=== PATIENT | male | born 1960 | race Caucasian/White ===

== ENCOUNTER 2022-12-09 10:14 | Inpatient (IN) | payer OTHER, SELFPAY ==
[2022-12-09] VITALS (50 sets, daily range): BP systolic 39–115; BP diastolic 20–97; PULSE 74–170; RESP 16–27; TEMP 34.7–36.7; O2SAT 96–100; BMI 28.3
--- NOTE | 2022-12-09 | ECHO_ITS ---
Patient Info Name: Vince Sheth Age: 62 years : 1960 Gender: Male Ht: 74 in Wt: 247 lbs BSA: 2.45 m2 HR: 105 bpm BP: 92 / 71 mmHg Heart Rhythm: Atrial Fibrillation Technical Quality: Fair Exam Date: 12/09/2022 4:17 PM Exam Location: [facility] Pulmonary Patient Status: Inpatient Admit Date: 12/09/2022 Staff Ordering Physician: Hannah Mcelroy APRN Base Ply Hand: Joseline Vann RDCS Attending Provider: Casimiro Garcia MD Referring Physician: Navi SHELTON; Exam Type: CA echo doppler color flow Study Info Indications - ELEVATED bnp, sob Complete two-dimensional, color flow and Doppler transthoracic echocardiogram is performed. Summary 1. Complete two-dimensional, color flow and Doppler transthoracic echocardiogram is performed. 2. Occur enlargement with normal wall thickness. Abnormal septal motion possibly due to bundle branch block. Severe global hypokinesis, EF 20%. Grade 2 diastolic dysfunction is present. 3. Severe right ventricular enlargement with severe hypokinesis. 4. Severe biatrial enlargement. 5. Mild mitral regurgitation. 6. Mild tricuspid regurgitation. 7. No pulmonary hypertension, estimated pulmonary arterial systolic pressure is 33 mmHg. 8. Dilated inferior vena cava. 9. Pleural effusion. 10. Atrial fibrillation. Left Ventricle Left ventricular chamber dimension is severely enlarged. Left ventricular systolic function is normal, estimated at 15-20%. There is no increased left ventricular wall thickness. Left ventricular septal wall motion is abnormal with septal motion related to bundle branch block. The left ventricular diastolic function is grade II diastolic dysfunction. Right Ventricle Right ventricular chamber dimension is severely enlarged. Right ventricular systolic function is reduced. Left Atria Left atrial chamber dimension is severely enlarged. Right Atria Right atrial chamber dimension is severely enlarged. Aortic Valve The aortic valve is trileaflet. There is no aortic valve sclerosis. There is no aortic valve stenosis. There is trace aortic valve regurgitation. Pulmonic Valve The pulmonic valve is normal. There is no pulmonic valve stenosis. There is trace pulmonic regurgitation. Mitral Valve The mitral valve has normal leaflets. There is no mitral valve stenosis. There is mild mitral valve regurgitation. Tricuspid Valve The tricuspid valve leaflets are normal. There is no significant tricuspid valve stenosis. There is mild tricuspid valve regurgitation. No pulmonary hypertension, estimated pulmonary arterial systolic pressure is 33 mmHg. There is no tricuspid valve calcification. Pericardium/Pleural The pericardium appears normal. There is no pericardial effusion. Inferior Vena Cava Dilated inferior vena cava with <50% collapse upon inspiration consistent with Empty right atrial pressure, 20 mmHg. Aorta The aortic root size at the sinus of Valsalva is normal. The prox ascending aorta size is normal. Left Ventricular Outflow Tract Name Value Normal LVOT 2D LVOT Diameter 1.9 cm LVOT Doppler LVOT Peak Gradient 0 mmHg LVOT Mean Gradient 0 mmHg LVOT VTI
--- NOTE | ~2022-12-09 | XR_ITS ---
EXAMINATION: XR chest ET placement DATE: 12/09/2022 22:18 INDICATION: Intubated. TECHNIQUE: A single frontal view of the chest was obtained. COMPARISON: Chest single view 12/09/2022, CT abdomen and pelvis 12/09/2022 FINDINGS: There are moderate-sized right and small left pleural effusions. There is mild atelectasis at the lung bases. No pneumothorax. Cardiomegaly is noted. The endotracheal tube tip is 4.5 cm above the [place]. The nasogastric tube tip is in the stomach. A right upper extremity peripherally inserted central venous catheter (PICC) is seen with tip at the superior cavoatrial junction. IMPRESSION: 1. Moderate-sized right and small left pleural effusions. 2. Cardiomegaly. Reviewed, dictated and finalized at location E.
--- NOTE | ~2022-12-09 | CT_ITS ---
EXAMINATION: CT abdomen pelvis wo con DATE: 12/09/2022 14:44 INDICATION: Nausea and vomiting. Diarrhea. Abdominal distention. TECHNIQUE: Computed tomography (CT) of the abdomen and pelvis was performed without intravenous contr ast. Automated exposure control and iterative reconstruction technique were employed. The dose-length product was 1403.40 mGy-cm. COMPARISON: None. FINDINGS: There are moderate-sized right and small left pleural effusions. There is peripheral atelec tasis bilaterally. Cardiomegaly is noted. No pericardial effusion. There are cysts in the liver measu ring up to 4.6 cm. There is a gallstone in the gallbladder, which is normal in size. The spleen, panc reas, adrenal glands, and kidneys are normal. There is no urolithiasis. There is calcified atheroscle rosis of the aorta and many of the other arteries. There is a fusiform infrarenal aortic aneurysm leonel suring 3.4 cm. There are no dilated loops of bowel. The appendix is normal. There are no pathological ly enlarged lymph nodes. There are bilateral inguinal hernias containing fat. There is a large volume of ascites. Body wall edema is noted. There is mild lumbar spondylosis. IMPRESSION: 1. Moderate-sized right and small left pleural effusions. 2. Large volume of ascites. 3. 3.4 cm fusiform aneurysm of infrarenal aorta. Reviewed, dictated and finalized at location E.
--- NOTE | ~2022-12-09 | NM_ITS ---
EXAMINATION: NM lung vent and perfusion DATE: 12/09/2022 14:44 INDICATION: Lung disease on chest radiograph, lower limb swelling and elevated d-dimer TECHNIQUE: 5.5 mCi xenon-133 by inhalation and 22.573 mCi Tc-99m MAA by intravenous route. Scintigra phic images of the chest were obtained. COMPARISON: Chest radiograph and CT abdomen and pelvis dated 12/09/2021 FINDINGS: There is an enlarged cardiac silhouette on both the ventilation and perfusion images. There is diffus e decreased activity in the right hemithorax on the posterior scintigrams obtained with both ventilat ion and perfusion imaging and with large nonsegmental region of absent activity along the posterior a spect of the right lung with flat anterior margin on the right lateral perfusion scintigrams likely r elated to a corresponding small to moderate-sized posterior layering left pleural effusion as seen on the prior radiographs and CT. Small triangular perfusion defect at the anterior right lower lung on the GARCIA and right lateral projections corresponding to extension of the paracardial fat pad into medi al aspect of the major fissure between the right middle and lower lobes. Small perfusion defect at th e left posterior sulcus also corresponding to a small left pleural effusion. There is otherwise homog eneous radiotracer activity throughout the lungs on the single breath ventilation sequence. No discre te ventilation and perfusion mismatch is identified. IMPRESSION: 1. Low probability for pulmonary embolism. Reviewed, dictated and finalized at location A.
--- NOTE | ~2022-12-09 | US_ITS ---
EXAMINATION: US abdomen limited DATE: 12/09/2022 20:47 INDICATION: Ascites. TECHNIQUE: Multiple grayscale and Doppler ultrasound images of the abdomen were obtained. COMPARISON: CT abdomen and pelvis 12/09/2022 FINDINGS: A survey of the 4 quadrants of the abdomen demonstrates a large volume of ascites. IMPRESSION: 1. Large volume of ascites. Reviewed, dictated and finalized at location E. IMPRESSION: 1. Large volume of ascites.
--- NOTE | ~2022-12-09 | XR_ITS ---
XR chest 1V portable DATE: 12/09/2022 11:31 INDICATION: Bilateral leg and hand swelling. Fatigue. TECHNIQUE: Portable AP chest on 01/05/2023 at 1124 hours COMPARISON: None FINDINGS: There is cardiomegaly. There is blunting of both costophrenic angle suggesting mild bilateral pleural effusions. Mild promin ence of the minor fissure may be due to mild subpleural edema. Mild pulmonary vascular congestion/red istribution. Bilateral lower lung infiltrate and/or atelectasis is suggested. Diffuse osteopenia. IMPRESSION: Cardiomegaly and mild congestive changes Bilateral patchy lower lung infiltrate and/atelectasis Reviewed, dictated and finalized at location L.
--- NOTE | ~2022-12-09 | XR_ITS ---
EXAMINATION: XR chest PICC line DATE: 12/09/2022 13:56 INDICATION: PICC line placement TECHNIQUE: frontal view of the chest was obtained. COMPARISON: Chest radiograph dated 12/09/2022 FINDINGS: Right upper extremity peripherally inserted central venous catheter (PICC) tip in the right atrium ap proximately 4 cm below level of the superior cavoatrial junction. Persistent hazy airspace opacities in the right mid to lower lung zone and left lower lung zone with blunting at the costophrenic angles consistent with small bilateral posterior layering pleural effusions and associated basilar atelecta sis. Mild increased interstitial pattern in the perihilar regions and lower lung zones consistent wit h mild pulmonary edema. No pneumothorax. Cardiomegaly. IMPRESSION: 1. Right PICC line tip in the right atrium 4 cm below the level of the superior cavoatrial junction. 2. Likely congestive heart failure with cardiomegaly, mild pulmonary edema and small bilateral pleura l effusions. 3. Opacities at the bilateral lung bases most likely associated atelectasis although differential inc ludes less likely pneumonia. Reviewed, dictated and finalized at location A. IMPRESSION: 1. Right PICC line tip in the right atrium 4 cm below the level of the superior cavoatrial junction. 2. Likely congestive heart failure with cardiomegaly, mild pulmonary edema and small bilateral pleural effusions. 3. Opacities at the bilateral lung bases most likely associated atelectasis alt wally differential includes less likely pneumonia.
--- NOTE | 2022-12-09 10:31 | ECG_ITS ---
Measurements Intervals [place] Rate: 162 P: TN: 0 QRS: 86 QRSD: 98 T: 240 QT: 266 QTc: 437 Interpretive Statements ATRIAL FIBRILLATION WITH RAPID VENTRICULAR RESPONSE INCOMPLETE RIGHT BUNDLE BRANCH BLOCK [90+ ms QRS DURATION, TERMINAL R IN V1/V2, 40+ ms S IN I/aVL/V4/V5/V6] ST DEVIATION AND MODERATE T-WAVE ABNORMALITY, CONSIDER LATERAL ISCHEMIA [-0.1+ mV T- WAVE IN I/aVL/V5/V6] NO PREVIOUS ECG AVAILABLE FOR COMPARISON Electronically Signed On 12-09-2022 12:41:47 CDT by Yonatan Charles M.D.
[2022-12-09 10:48] LABS: Basophils Percent Auto 0.2 % (0.2-1.2); Hematocrit 53.6 % (42.0-52.0); Hemoglobin 16.7 g/dL (14.0-18.0); Immature Granulocyte Absolute 0.03 K/mm3 (0.00-0.031); Immature Granulocyte Percent A 0.3 % (0-0.5); Lymphocytes Absolute Auto 0.56 K/mm3 (0.9-3.2); Lymphocytes Percent Auto 6.1 % (18.3-44.2); Mean Corpuscular HGB Conc 31.2 g/dl (32-36); Mean Corpuscular Hemoglobin 26.6 pg (26-34); Mean Corpuscular Volume 85.4 fl (80-100); Mean Platelet Volume 12.7 fl (7.4-10.4); Monocytes Percent Auto 11.1 % (2.6-8.5); Neutrophils Absolute Auto 7.5 K/mm3 (1.3-6.7); Neutrophils Percent Auto 82.3 % (45.5-73.1); Platelet Count Result 146 k/mm3 (150-375); Red Blood Count 6.28 M/mm3 (4.6-6.20); Red Cell Distribution Width 17.2 % (11.5-14.5); White Blood Count 9.1 K/mm3 (4.5-10.0)
[2022-12-09 10:57] LABS: Alanine Aminotransferase 37 U/L (6-50); Alkaline Phosphatase 71 U/L (38-126); Anion Gap 8 mmol/L (8-16); Aspartate Amino Transferase 49 U/L (17-59); Bilirubin,Total 2.2 mg/dL (0.2-1.3); Blood Urea Nitrogen 32 mg/dL (9-20); Calcium 9.2 mg/dL (8.4-10.2); Carbon Dioxide 32 mmol/L (22-30); Chloride 88 mmol/L (98-107); Estimated CRCL calculation 82 ml/min; Estimated Glomerular Filt Rate > 60; Glucose 150 mg/dL (65-110); Potassium 5.6 mmol/L (3.4-5.0); Sodium 128 mmol/L (137-145)
[2022-12-09 11:00] LABS: INR 1.5
[2022-12-09 11:01] LABS: Partial Thromboplastin Time 31.4 SECONDS (22.3-36.8)
[2022-12-09] MEDS: METOPROLOL TARTRATE INJ 5 MG/5 ML VIAL IV PUSH ×2 (11:02→11:07)
[2022-12-09 11:10] LABS: NT Pro B Type Natriuretic Pept 16300 pg/mL (19.9-100); Troponin I 0.033 ng/mL (0.000-0.034)
[2022-12-09] MEDS: FUROSEMIDE INJ 40 MG/4 ML VIAL IV PUSH (11:14)
[2022-12-09] MEDS: AMIODARONE 150 MG/D5W 100 ML 150 MG/100 ML BAG 600 MG IV CONT (11:24)
[2022-12-09 11:35] LABS: D Dimer 2.99 ug/mL (<0.48)
[2022-12-09] MEDS: AMIODARONE 360 MG/D5W 200 ML 360 MG/200 ML BAG 33.33 MG IV CONT ×2 (11:39→18:01)
[2022-12-09] MEDS: NOREPINEPHRINE 8 MG/D5W 250 ML 8 MG/250 ML BAG 9.38 MG IV CONT (12:15)
--- NOTE | 2022-12-09 12:27 | PC.NURSE ---
1200: Dr. Matos called to pt to assess hypotension. Pt beginning to get lethargic. Does converse when spoken to. Orders received additional IV started.
--- NOTE | 2022-12-09 12:29 | PC.NURSE ---
Pt B/P increased with a mean 70. Speaking with ICU PAN GREASER at this time. Continues to deny chest pain. Edema unchanged. Pt states his scrotum is swollen as well.
--- NOTE | 2022-12-09 12:47 | PM.IMHP ---
H&P: HPI History of Present Illness Date/Time: 12/09/22 12:47 Chief Complaint: N/V, Swelling Narrative: [age] year presents here with nausea, vomiting, diarrhea swelling and shortness of breath with PMH of tobacco use (cessation on 10/10/22). Patient presents here with intermittent diarrhea for the past 3 weeks. Describes bowel movements as clear, frothy. Also endorsing nausea and vomiting - bilious. States he has been more short of breath and experiencing an increased amount of swelling to his legs, scrotum, abdomen, and left upper extremity. Patient reports that he came today because of an advertisement for a linux system administrator's office. He originally called the urgent care in [place] and they recommended he seek treatment in the emergency department. Otherwise states he has not seen a medical provider for some time, no past medical history that he can report beyond former tobacco use. Patient is poor historian and has difficulty describing symptoms and onset. Review of Systems Review of Systems: He denies fever, chest pain, cough, or palpitations. Endorses occasional alcohol use, no prior history of heavy abuse. All systems reviewed & are unremarkable except as noted in HPI and below PMFSH Past Medical History Medical History Acute combined systolic and diastolic congestive heart failure Cardiomyopathy Former tobacco use Lung infection Hospitalized for 3 or 4 months when he was [age] years old with some type of infection as result of bird droppings (pscitacosis?), sounds like he may have required thoracentesis. Family History Family History Mother Sepsis Cause of Father Carcinoma of colon COPD (chronic obstructive pulmonary disease) Sibling Vasovagal syncope Social History Social History Social History: , lives w/ younger brother, has 2 children. Used to work building swimming pools. Stopped smoking in October 2022. Smoking packs per day: 0.5 Smoking cigarettes per day: 10.0 Smoking status: Former smoker Alcohol intake: current Alcohol use details: Infrequent alcohol Substance use: never Lack of Transportation: No Lack of Food: Sometimes True Current Housing: Decline to Answer Concerned About Future Housing: Decline to Answer Difficulty Paying Gas/Electric Bills: Decline to Answer Difficulty Paying for Meds: Decline to Answer Currently Unemployed: Decline to Answer Education: Decline to Answer Difficulty w/ Childcare or Family Care: Decline to Answer Spiritual care concerns: No Meds Home Medications and Allergies Home Medications Medication Instructions Recorded Confirmed Type No Home Medications 12/09/22 12/09/22 History Allergies Allergy/AdvReac Type Severity Reaction Status Date / Time iodine Allergy Unknown Verified 12/09/22 11:03 strawberry Allergy Unknown Verified 12/09/22 11:03 Vital Signs Vital Signs - 24 hr 12/09/22 10:24 12/09/22 11:02 12/09/22 11:04 Temperature 97.5 F L Pulse Rate 74 170 H 170 H Respiratory Rate 18 Blood Pressure 114/97 H Pulse Oximetry 97 Oxygen Delivery Room Air 12/09/22 11:07 12/09/22 11:10 12/09/22 11:24 Temperature Pulse Rate 148 H 152 H 134 H Respiratory Rate Blood Pressure 102/85 Pulse Oximetry Oxygen Delivery 12/09/22 11:39 12/09/22 12:12 12/09/22 12:15 Temperature Pulse Rate 110 H 112 H 108 H Respiratory Rate 20 Blood Pressure 111/91 H 93/70 L 56/29 L Pulse Oximetry 97 Oxygen Delivery Exam Narrative: Patient lying in stretcher. Const: General: comfortable and no acute distress Eyes: General: appearance normal, both eyes and all related structures Sclera: sclerae normal Pupils: Equal, round and reactive pupils present Resp: Effort & Inspec
--- NOTE | 2022-12-09 13:20 | WPDCNINT ---
Assessment and Plan Assessment and plan (1) Atrial fibrillation with rapid ventricular response: Code(s): I48.91 - Unspecified atrial fibrillation Status: Acute Assessment and Plan: Patient started on amiodarone drip. He has a mention of iodine allergy but states that he was a minor rash although he does not even remember any other details regarding it Will start anticoagulation. Patient will need paracentesis hence will delay starting anticoagulation if it is scheduled for today (2) Acute CHF (congestive heart failure): Code(s): I50.9 - Heart failure, unspecified Status: Acute Assessment and Plan: Patient has anasarca with abdominal distension suggestive of ascites, diffuse bilateral pitting edema, and pulmonary edema Check echocardiogram and TSH Denies any chest pain. EKG reviewed. Troponin x1 is negative (3) Shock: Code(s): R57.9 - Shock, unspecified Status: Acute Assessment and Plan: Patient hypotensive but overall significantly volume overloaded Patient is going to be started on Levophed. If RVR gets worse may have to switch him to [place]-Synephrine No signs or symptoms suggestive of sepsis at this time. WBC normal. check UA lactic acid and procalcitonin level (4) Hyponatremia: Code(s): E87.1 - Hypo-osmolality and hyponatremia Status: Acute Assessment and Plan: Sodium 128. Baseline unknown likely chronic from CHF Monitor (5) Anasarca: Code(s): R60.1 - Generalized edema Status: Acute Assessment and Plan: Patient has diffuse anasarca and this is likely secondary to congestive heart failure although liver disease will need to be ruled out. CT scan of the abdomen and pelvis is pending. INR 1.5. Bilirubin is slightly elevated 2.2 but liver enzymes are normal. Albumin is normal. Check ammonia. Depending on CT scan results will decide on ultrasound. He denies any IV drug use Will request paracentesis for the ascites as patient has significant distension and is symptomatic. Check lower extremity Dopplers to rule out any DVT although diffuse chronic bilateral swelling suggesting against DVT to be the etiology Once patient's blood pressure improves will start him on Lasix Check UA with micro Accurate I&Os (6) Hyperkalemia: Code(s): E87.5 - Hyperkalemia Status: Acute Assessment and Plan: Potassium 5.6. Creatinine is 1.1 Will give insulin D50 and dose of Lokelma Recheck BMP later today Plan DVT prophylaxis -will start anticoagulation AFib with RVR Nutrition - NPO Code Status - Full Code Total Critical Care Time - 40 minutes Due to a high probability of clinically significant, life threatening deterioration, the patient required my highest level of preparedness to intervene emergently and I personally spent this critical care time directly and personally managing the patient. This critical care time included obtaining a history; examining the patient; pulse oximetry; ordering and review of studies; arranging urgent treatment with development of a management plan; evaluation of patient's response to treatment; frequent reassessment; and discussions with other providers. It was exclusive of separately billable procedures and treating other patients and teaching time. Please see Assessment and Plan section and the rest of the note for further information on patient assessment and treatment Engineer Technical Staff Consult Note Consult date: 12/09/22 Reason for consult: AFib with RVR. Hypotension HPI: Vince Sheth is a 62 year old male with no significant past medical history who has not seen a physician in decades presented with chief complaint of swelling all over his body. Patient states that he has not seen any physician in many years since he does not get sick. He states that on last 1 and half months he has been developing generalized swelling of his legs and abdomen. States the swelling has gotten so worse that he is unabl
--- NOTE | 2022-12-09 13:21 | PC.NURSE ---
1320: Belem Snider RN here to place PICC line. Procedure explained to pt, pt denies any questions or concerns consent signed. Dr. Francois assessed pt no new orders. Pt remains A/O x4. B/P improving on Levophed gtt
[2022-12-09] MEDS: LIDOCAINE HCL 1% PF INJ 5 ML VIAL INFILTRATE (13:30)
--- NOTE | 2022-12-09 13:45 | PC.NURSE ---
1245: Dr. Matos increased Levophed to 8mcg/min
--- NOTE | 2022-12-09 13:46 | PC.NURSE ---
Last note 1245 incorrect Levophed increased to 8mg/min by Dr. Matos
--- NOTE | 2022-12-09 13:48 | PC.NURSE ---
Levophed at 8mcg/min by Dr. Matos
--- NOTE | 2022-12-09 13:53 | ED.GENADULT ---
HPI - General Adult General Chief complaint: Unspecified Stated complaint: leg swelling Time Seen by Provider: 12/09/22 10:58 History of Present Illness HPI narrative: Patient states that about a month ago he started feeling poorly, he was walking up a hill and felt like he could not breathe, and since then he has not felt entirely well, he also noticed that he has been having a lot of swelling to his legs and his abdomen and finally came in today. Has no chest pain, he does have difficulty breathing with exertion. Related Data Allergies Allergy/AdvReac Type Severity Reaction Status Date / Time iodine Allergy Unknown Verified 12/09/22 11:03 strawberry Allergy Unknown Verified 12/09/22 11:03 Review of Systems Review of Systems: CONST: No fever. HEENT: No sore throat C/V: No chest pain RESP: Shortness of breath on exertion GI: Reports abdominal distension : No dysuria. M/S: Bilateral lower extremity edema up to waist SKIN: No rash. NEURO: [No headache or focal numbness or weakness] PSYCH: [No depression] Exam Narrative: EXAMINATION OF ORGAN SYSTEMS/BODY AREAS: Constitutional: Vital signs per nursing GENERAL:[No acute distress, non-toxic appearing.] HEAD: Normal with no signs of head trauma. EYES: EOMI, conjunctiva normal ENT: Hearing grossly intact LUNGS: Slightly labored respirations HEART: [Regular rate and rhythm] ABD: [Soft], pitting edema abdomen EXT: Normal range of motion, pitting edema up entire leg SKIN: [No rashes or lesions.] NEURO: [Alert and oriented x 3. No gross focal sensory or strength deficits.] PSYCH: Normal affect Course Vital Signs Vital signs: Vital Signs Temperature 97.5 F L 12/09/22 10:24 Pulse Rate 74 12/09/22 10:24 Respiratory Rate 18 12/09/22 10:24 Blood Pressure 114/97 H 12/09/22 10:24 Pulse Oximetry 97 12/09/22 10:24 Oxygen Delivery Room Air 12/09/22 10:24 Temperature 97.8 F 12/09/22 12:45 Pulse Rate 123 H 12/09/22 13:30 Respiratory Rate 20 12/09/22 13:30 Blood Pressure 90/75 L 12/09/22 13:30 Pulse Oximetry 97 12/09/22 13:30 Oxygen Delivery Nasal Cannula 12/09/22 11:30 Oxygen Flow Rate 2 12/09/22 11:30 Medical Decision Making MDM Narrative Medical decision making narrative: Patient presenting with weakness, abdominal distention, dyspnea on exertion, and bilateral lower extremity pitting edema worsening over the last month, at time of triage his heart rate was 160s, EKG showing A-fib with RVR, he is immediately placed in room, IV access obtained, monitors placed, given my concern that he likely has uncompensated new onset heart failure, I did opt to give metoprolol and Lasix instead of Cardizem, and initially heart rate did improve however blood pressure did start dropping to maps around 65, I therefore did not give additional metoprolol, and did start an amiodarone drip, I did speak with the certified driver examiner on-call who agreed with the plan. I did reevaluate patient and unfortunately his blood pressure has continued to drop necessitating starting peripheral pressors, I did speak with the director credit risk. I did update the patient on the plan. Labs notable for BNP 16,000, low sodium and high potassium, elevated D-dimer. Patient will be getting a VQ scan and CT abdomen/pelvis Vital Signs Vital Signs: Vital Signs Temperature 97.5 F L 12/09/22 10:24 Pulse Rate 74 12/09/22 10:24 Respiratory Rate 18 12/09/22 10:24 Blood Pressure 114/97 H 12/09/22 10:24 Pulse Oximetry 97 12/09/22 10:24 Oxygen Delivery Room Air 12/09/22 10:24 Temperature 97.8 F 12/09/22 12:45 Pulse Rate 123 H 12/09/22 13:30 Respiratory Rate 20 12/09/22 13:30 Blood Pressure 90/75 L 12/09/22 13:30 Pulse Oximetry 97 12/09/22 13:30 Oxygen Delivery Nasal Cannula 12/09/22 11:30 Oxygen Flow Rate 2 12/09/22 11:30 Lab Data 12/09/22 10:42 12/09/22 10:42 Labs: Lab Results 12/09/22 Range/Units
[2022-12-09] MEDS: INSULIN HUMAN REGULAR (*BKC) 100 UNITS/ML IV PUSH (14:48)
[2022-12-09] MEDS: SODIUM ZIRCONIUM CYCLOSILICATE 10 GM POWD.PACK PO ×2 (14:49→20:03)
[2022-12-09] MEDS: DEXTROSE 50% 25 GM/50 ML SYRINGE IV PUSH (14:50)
--- NOTE | 2022-12-09 14:52 | PC.NURSE ---
RN accompanied pt to Nuc Med & CT with monitor & meds infusing. Pt tolerated well.
--- NOTE | 2022-12-09 15:06 | ADMGEN ---
This patient, Vince Sheth, was admitted to Intensive Care Unit-8. Patient/family oriented to hospital policies and general routines including ID bracelet, bed and alarms, visiting hours, pain management, procedures, bathroom and other care routines, personal items, smoking policy, room service/diet, and visiting hours. Information on how to activate the Rapid Response Team has been discussed. Patient/Family are encouraged to report perceived risks to care and to ask questions if they do not understand what they are told or what they should do.
[2022-12-09 15:53] LABS: Ammonia 35 umol/L (9-30)
[2022-12-09 15:54] LABS: Lactic Acid Reflex 3.7 mmol/L (0.7-2.0)
[2022-12-09 15:56] LABS: Anion Gap 10 mmol/L (8-16); Blood Urea Nitrogen 32 mg/dL (9-20); Calcium 8.9 mg/dL (8.4-10.2); Carbon Dioxide 27 mmol/L (22-30); Chloride 90 mmol/L (98-107); Estimated CRCL calculation 57 ml/min; Estimated Glomerular Filt Rate 51; Glucose 171 mg/dL (65-110); Potassium 5.2 mmol/L (3.4-5.0); Sodium 127 mmol/L (137-145)
[2022-12-09 16:01] LABS: Hemoglobin A1C 6.5 % (<5.7)
[2022-12-09 16:06] LABS: Appearance Urine Cloudy (Clear); Bacteria Urine None Seen /hpf; Bilirubin Urine 2+ (Negative); Blood Urine 2+ (Negative); Color Urine Dark Yellow (Yellow); Glucose Urine UA Negative (Negative); Hyaline Casts Urine Present /lpf; Ketones Urine Negative (Negative); Leukocyte Esterase Ur 1+ LEU/UL (Negative); Need Manual Microscopic Reviewed; Nitrate Urine Positive (Negative); Non Pathogenic Casts >20; Protein Urine 3+ mg/dL (Negative); RBC Urine 21-50 /hpf (0-2); Specific Grav Ur 1.027 (1.001-1.035); Squamous Epithelial Cell Urine None seen /hpf (Few); WBC Urine 21-50 /hpf
[2022-12-09 16:07] LABS: Add Urine Microscopic? YES
--- NOTE | 2022-12-09 16:39 | PM.CNCAR ---
Assessment and Plan Assessment and plan (1) Atrial fibrillation with rapid ventricular response: Code(s): I48.91 - Unspecified atrial fibrillation Status: Acute Assessment and Plan: Atrial fibrillation w/ rapid ventricular response of uncertain duration. Has been difficult to control despite IV amiodarone. Low BP limits therapy. Unclear if caused by cardiomyopathy or is causing the cardiomyopathy. No valve dz, significant thyroid dz, etc. --Cont amio at 1 mg/min --Digoxin 0.25 mcg IVp q 6 Hr X 3 doses --Recommend anticoagulation, though since pt may get a paracentesis tmr, AC is on hold --Lovenox X 1 dose (2) Acute combined systolic and diastolic congestive heart failure: Code(s): I50.41 - Acute combined systolic (congestive) and diastolic (congestive) heart failure Status: Acute Assessment and Plan: Acute R&L sided CHF w/ anasarca. Not responding to IV Lasix and is developing CHIQUI. Pt is quite ill, though oxygenating adequately at this time. --Getting a dose of furosemide 80 mg X 1 --Try Dobutamine 2.5 mcg/kg/min and see if BP and HR tolerate this (3) Cardiomyopathy: Code(s): I42.9 - Cardiomyopathy, unspecified Status: Acute Assessment and Plan: EF20%, involving both the right and left ventricles. Etiology unclear, may be idiopathic vs. 2nd a fib RVR, or both. --Unable to institute guideline-directed medical therapy due to low BP. (4) Shock: Code(s): R57.9 - Shock, unspecified Status: Acute Assessment and Plan: Requiring Levophed. Unclear what type of shock, may be cardiogenic, r/o sepsis. Cultures obtained, on empiric antibiotics. --If pt deteriorates and this appears to be cardiogenic shock, may need to consider advanced therapies. (5) CHIQUI (acute kidney injury): Code(s): N17.9 - Acute kidney failure, unspecified Status: Acute Assessment and Plan: CHIQUI and hyponatremia; tx per hospitalists/intensivists --Daily BMP (6) Anasarca: Code(s): R60.1 - Generalized edema Status: Acute Assessment and Plan: Probably due to CHF and possibly cardiac cirrhosis. Plan Pt is critically ill with life-threatening problems, and has a high risk of significant morbidity and mortality. History of Present Illness History of Present Illness Consult date/time: 12/09/22 16:39 Reason For Visit: Afib RVR Hypotension CHF Narrative: Vince Sheth is a 62 y.o. male whom I was asked to see by Dr. Roro Matos for my advice and opinion regarding his new AFib and CHF, in consultation. He has not seen a doctor for many years and thus has no past medical history. Mr. Sheth has had problems with RICCI, swelling of his legs and abdomen, RICCI and not feeling well for about a month. In the emergency room his found to have AFib RVR with a heart rate of 123, a soft blood pressure, and severe lower extremity swelling, ascites and anasarca as well as pulmonary edema. He was given some IV metoprolol without much improvement, then started on IV amiodarone. He has been admitted to the intensive care unit because of low blood pressure. He has been started on Levophed. No palps, CP, h/o heart dz or murmurs, thyroid dz. Some dizziness, no syncope. ProBNP: [id number] TSH: 4.9 EKG: AFib rate 162, low voltage, lateral T-wave inversion, poor R-wave progression, personally reviewed Chest x-ray: Cardiomegaly, bilateral pleural effusions, mild pulmonary vascular reviewed distribution/congestion, lower lobe infiltrates, personally reviewed Echo: Four-chamber cardiac enlargement, severe global hypokinesis, ejection fraction 20%. Review of Systems Constitutional: Constitutional: Denies fever(s) Eyes: Eyes: Reports no additional eye complaints ENT: Denies epistaxis Cardiovascular: Cardiovascular: Denies chest pain, Reports pedal edema, Reports leg edema, Denies lightheadedness and Denies dyspnea Comments: Some PND and orthopnea
[2022-12-09 17:16] LABS: Free T4 Free Thyroxine Reflex 1.37 ng/dL (0.78-2.19)
[2022-12-09 18:00] LABS: Total Triiodothyronine (T3) 0.88 NG/ML (0.97-1.69)
[2022-12-09] MEDS: DOBUTamine 250 MG/D5W 250 ML 250 MG/250 ML BAG 14.99 MG IV CONT (18:39)
[2022-12-09 18:42] LABS: Reflex Lactic Acid Yes or No Add Lactic
[2022-12-09] MEDS: ASPIRIN 325 MG TABLET PO (20:02)
[2022-12-09] MEDS: ENOXAPARIN 40 MG/0.4 ML SYRINGE SUB-Q (20:09)
[2022-12-09] MEDS: VASOPRESSIN INJ 100 UNITS in DEXTROSE 5% 95 ML IV CONT (20:30)
[2022-12-09 21:15] LABS: INR 2.1; Partial Thromboplastin Time 40.8 SECONDS (22.3-36.8); Prothrombin Time 24.7 Seconds (11.1-14.7)
[2022-12-09] MEDS: LIDOCAINE HCL 2% GEL UROJET 10 ML PKG MUCOUS MEM (21:22)
[2022-12-09 21:41] LABS: Alveolar/Arterial O2 Gradient 137.9 mmHg; Base Excess ABG -7.4 mEq/l (+/-2.0); Fractional Inspired Oxygen 38 %; HCO3 ABG 26.8 mEq/l (22.0-26.0); Oxygen Content ABG 4.3 %vol (16.0-22.0); PO2 FiO2 Ratio Arterial Blood 0.45 %; Total Hemoglobin 17.8 g/dL (12.0-18.0)
[2022-12-09 21:47] LABS: Fractional Inspired Oxygen 38 %; HCO3 VBG 24.6 mEq/l (24.0-30.0)
[2022-12-09 21:49] LABS: Device NASAL CANNULA; Liters per Minute 4.5 LPM; PCO2 VBG 82.6 mmHg (42.0-48.0); PO2 VBG < 27.0 mmHg (35.0-45.0); pH VBG 7.092 (7.300-7.400)
[2022-12-09 21:50] LABS: Oxygen Saturation ABG < 0.0 % (95.0-100.0); Oxyhemoglobin 17.1 % THb (90.0-100.0); PCO2 ABG 100.5 mmHg (35.0-45.0); PO2 ABG < 27.0 mmHg (80.0-100.0); pH ABG 7.044 (7.350-7.450)
[2022-12-09 21:51] LABS: Device NASAL CANNULA; Liters per Minute 4.5 LPM; Site Drawn LEFT FEMORAL
[2022-12-09 21:56] LABS: Fibrinogen 202 mg/dl (215-510)
[2022-12-09 22:09] LABS: Albumin Level 3.7 g/dL (3.5-5.1); Anion Gap 14 mmol/L (8-16); Blood Urea Nitrogen 32 mg/dL (9-20); Calcium 8.7 mg/dL (8.4-10.2); Carbon Dioxide 25 mmol/L (22-30); Chloride 88 mmol/L (98-107); Estimated CRCL calculation 47 ml/min; Estimated Glomerular Filt Rate 41; Glucose 116 mg/dL (65-110); Phosphorus 8.2 mg/dL (2.5-4.5); Potassium 5.9 mmol/L (3.4-5.0); Sodium 127 mmol/L (137-145)
[2022-12-09 22:12] LABS: Lactic Acid Reflex 6.1 mmol/L (0.7-2.0)
[2022-12-09] MEDS: FENTANYL 2,500MCG/NS250ML(*CRX 2,500 MCG/250 ML BAG IV CONT (22:30)
[2022-12-09] MEDS: MIDAZOLAM 100MG/NS 100ML(*CRX) 100 MG/100 ML BAG IV CONT (22:30)
--- NOTE | 2022-12-09 22:34 | PC.NURSE ---
2117- home patient prep for arterial line placement by Dr Brock
[2022-12-09] MEDS: SODIUM CHLORIDE 0.9% IV 250 ML 30 ML IV CONT (23:00)
--- NOTE | 2022-12-09 23:36 | WPDPROCEDUR ---
Procedures Central Line Placement Left Femoral: Central Line Date: 12/09/22 Central Line Time: 22:30 Performed Emergently - Given emergent patient condition, temporal constraints may have precluded informed consent.: Yes Time Out Performed: Yes Patient Position: trendelenburg Patient placed on monitor/pulse ox: Yes Provider Prep: mask, sterile gown, sterile gloves, Max. sterile barrier precautions, cap and hand hygiene with conventional soap/water or alcohol based hand rub Central line prep: 2% Chlorhexidine scrub and sterile full body sheet applied Sterile US Technique with sterile gel/sterile probe covers: Yes Central line lumen inserted: triple Chinese: 7 Length (cm): 16 Depth of Insertion (cm): 15 Post Procedure: sutured in place, good blood return, all ports aspirated, flushed, capped and transparent dressing Patient tolerated procedure: other Complications: hematoma at puncture site Additional comments: Difficult access due to patient condition, body habitus, anasarca. Attempt made to facilitate a clear field and overcome barriers by positioning and staff at standby to help position. Aseptic technique maintained during initial half of procedure. First attempt guidewire kinked. Second attempt with arterial line guidewire. Guidewire able to be passed. Dilator used. Central line guidewire replaced the arterial line guidewire. Central line then passed through without difficulty. All lines draw and flush easily. Line sutured down x2. Due to patient condition and difficulties, aseptic technique abandoned. Hematoma at insertion site. Dr. Bryson at bedside supervising and providing assistance. Intubation Intubation Date: 12/09/22 Intubation Time: 22:00 A pre-procedural Time-Out was completed immediately before starting the procedure and confirmed: Patient Identification, Site, Procedure, Patient Position and the Availability of Requisite Equipment: Yes Sedative: etomidate Mg given: 20 Paralytic: succinylcholine Mg given: 100 Laryngoscope: fiber optic video scope ET tube size: cuffed Tube secured depth (cm): 27 Tube secured location: lips Tube placement confirmation: visualized tube passing through cords, equal breath sounds bilaterally, no breath sounds over epigastrium and confirmation by capnometry Patient tolerated procedure: well Intubation complications: none Additional comments: post CXR ordered and reviewed. ET tube termination 4 cm above [place]. Impression pending. Dr. Bryson at bedside to to assess and supervise procedure.
[2022-12-10] VITALS (13 sets, daily range): BP systolic 39–77; BP diastolic 20–50; PULSE 101–112; RESP 20–24; TEMP 35.5–36.8; O2SAT 33–44
[2022-12-10] MEDS: CELLULOSE OXIDIZED 2 x 14 INCH 1 PKT XX (00:29)
[2022-12-10] MEDS: EPINEPHrine INJ 1 MG in DEXTROSE 5% IN WATER 250 ML 15.06 MG IV CONT (00:30)
[2022-12-10] MEDS: NOREPINEPHRINE 8 MG/D5W 250 ML 8 MG/250 ML BAG 60 MG IV CONT (01:05)
[2022-12-10] MEDS: HYDROCORTISONE SODIUM SUCCINATE 100 MG/2 ML VIAL IV PUSH (01:05)
--- NOTE | 2022-12-10 01:35 | WPDPROCEDUR ---
Procedures Arterial Line Arterial Line Date: 12/09/22 Arterial Line Time: 21:27 Discussed with the patient/family/POA, the placement of an arterial catheter, including its clinical necessity/indication and associated potential risks, benefits and alternatives.: Yes Patient/family/POA and/or understands and acknowledges the need to proceed with the arterial catheter insertion as an important element of the patient's clinical management.: Yes Time Out Performed: Yes Patient Position: supine Financial Services Professional Prep: sterile gown, sterile gloves, mask and hat Site: femoral Site Prep: chlorhexidine and sterile drape Skin Anesthesia: 1% lidocaine Technique used: ultrasound-guided (With sterile ultrasound probe cover) Size (Gauge): 20 Length: 12 cm Additional comments: Patient was hypotensive we were unable to obtain accurate blood pressures. I attempted a left femoral arterial line. The needle the bounced off of the patient's calcified arteries multiple times and line attempt was unsuccessful. Was able to obtain venous specimens for venous blood gas and stat labs. I also visualized the patient's other femoral artery as well as his right brachial artery. Attempts were made at both sites without success. I did get arterial blood returned on the right brachial artery but before the line could be secured the patient moved in the line was dislodged. Shortly after the last arterial line attempt just before midnight patient's family arrived at the hospital. The patient was already maxed out on 4 pressors and family decided to not proceed with any more invasive procedures.
[2022-12-10] MEDS: CEFEPIME 1 GM/NS 50 ML 1 GM/50 ML BAG IVPB (01:37)
--- NOTE | 2022-12-10 01:39 | PM.EVENT ---
Event Note Event Note Event Note: 12/09/2022 at 19:45
[2022-12-10] MEDS: VANCOMYCIN 1,250 MG/NS 250 ML 1,250 MG/250 ML BAG 166.67 MG IVPB (01:44)
[2022-12-10] MEDS: CENTRAL LINE FLUSH 10 ML IV PUSH (01:46)
[2022-12-10] MEDS: MORPHINE SULFATE INJ (*CRX) 10 MG/ML AMP 5 MG IV PUSH (03:31)
--- NOTE | 2022-12-10 05:04 | PM.DDS ---
Discharge Summary Date and Time Date of : 12/10/22 Time of : 03:36 Provider Pronounced By: kristy harvey Probable Cause of Probable Cause of : Cardiogenic shock resulting in multiorgan system failure Summary Hospital Course: The patient was admitted around noon after presenting to the ER with 1 month symptoms of shortness of breath, lower extremity swelling, nausea, vomiting and diarrhea. He had been having swelling in his scrotum abdomen and upper extremities as well. He had not seen a medical provider in many years and had no medical history that he knew of except for chronic tobacco use. The patient's symptoms have been worsening over the last month. Is heart rate in the ER was 160 with AFib RVR. He received IV metoprolol and Lasix. He became hypotensive. He was started on amiodarone drip. The patient's blood pressures continued to drop and he was placed on IV vasopressors. The patient had a emergent PICC line placed. The patient had mild hyperkalemia and hyponatremia. He also had lactic acidosis. His blood pressures continued to worsen and the patient was admitted to the ICU. A emergent echocardiogram was performed which demonstrated EF of 20% grade 2 diastolic dysfunction. He had severe right ventricular enlargement with severe hypokinesis and severe bilateral atrial enlargement. The patient was admitted to the ICU with cardiogenic shock. Initially the patient's blood pressures were stabilized on Levophed at 15 and dobutamine. However around 16:00 the patient's blood pressures dropped and were more persistently low. By 18:00 the patient's blood pressures were precipitously dropping. Her nursing staff called me shortly after shift change and told me that the blood pressures were not reliable. I consented the patient for an arterial line. Vasopressin was added to the patient's pressors and his dobutamine was stopped due to the degree of hypotension. Went to place a arterial line around 20:00. The arterial line was difficult to place due to patient's body habitus and anasarca. The patient had a arterial calcifications at me the arteries difficult to access. Head and arterial line placement was unsuccessful. Patient did have more than expected bleeding from the procedure. Approximately 20 mL. A fibrinogen was added to the patient's labs as well as a D-dimer. Evidently lab discontinued may repeat D-dimer but the patient's prior D-dimer was already elevated. Fibrinogen was found to be low when the patient was in DIC. Just prior to the arterial line placement patient's blood pressure had dropped into the 60 systolic. Vasopressin was added. The patient did become more labored in his respirations and less responsive over a relatively short period of time. During the procedure I was able to obtain a venous blood gas which came back at 7.04 and pCO2 100. Respiratory was contacted to set up BiPAP. However by time respiratory arrived in the room patient was unresponsive. Subsequently patient was intubated. Intubation was performed by nurse practitioner with my supervision without difficulty. With intubation patient did have improved oxygen saturations. Initially oxygen saturations were not picking up due to patient's poor perfusion. After intubation patient was started on Chandler-Synephrine which allowed blood pressures to improve and oxygen saturations were improved. I did again attempt a arterial line placement but was again unsuccessful. Nurse practitioner then placed a central line as the patient's PICC line did not allow enough access for nursing staff to obtain labs and provide all infusions. The patient was given 2 amps of sodium bicarb. Despite these efforts patient's blood pressures continued to decompensate. Patient's family was contacted. When the patient's coags came back consistent with DIC the patient did receive 2 units of FFP and 1 of cryoprecipitate. Eventually epinephrine was added to the patient's pres
== END 2022-12-10 03:36 | disposition expired | DRG 194 ==
LOC: ANHED 11:17 → ANHICU 14:07
PROVIDERS: Internal Medicine; Student in an Organized Health Care Education/Training Program; Admitting Provider Internal Medicine; Emergency Provider Emergency Medicine; Visit Provider Internal Medicine
DX: I50.41 Acute combined systolic (congestive) and diastolic (congestive) heart failure (principal); R57.0 Cardiogenic shock; D65 Disseminated intravascular coagulation [defibrination syndrome]; N17.9 Acute kidney failure, unspecified; I95.9 Hypotension, unspecified; E87.20 Acidosis, unspecified; I42.9 Cardiomyopathy, unspecified; E87.1 Hypo-osmolality and hyponatremia; I48.91 Unspecified atrial fibrillation; Z28.21 Immunization not carried out because of patient refusal; E87.5 Hyperkalemia; Z66 Do not resuscitate
CPT/HCPCS: 31500; 36415; 36430; 36569; 36600; 71045; 74176; 76705; 78582; 80048; 80053; 80069; 81001; 82140; 82803; 82805; 83036; 83605; 83880; 83930; 84439; 84443; 84480; 84484; 85025; 85380; 85384; 85610; 85730; 86850; 86900; 86901; 87040; 87086; 93005; 93306; 94002; 96374; 96375; 99291; A9270; A9540; A9558; C1751; J0171; J0282; J0692; J0696; J1250; J1650; J1720; J1815; J1940; J2250; J2270; J2371; J3010; J3370; J7030; J7050; J7060; P9017